=== PATIENT | male | born 1960 | race Two or more races ===

== ENCOUNTER 2018-03-26 07:12 | Outpatient (CLI) | payer OTHER ==
[~2018-03-26 07:12] MED LIST: PRILOSEC20 MG; SYNTHROID50 MCG
== END 2018-03-26 07:22 | disposition home or self-care (01) ==
LOC: SONOGRAMA 07:12 → MAMO-SONO 08:45
DX: R10.84 Generalized abdominal pain (principal)

== ENCOUNTER 2018-07-08 15:06 | Outpatient (CLI) | payer OTHER ==
[~2018-07-08] VITALS: Ht 152.4 cm; Wt 71.7 kg
== END 2018-07-08 15:20 | disposition home or self-care (01) ==
LOC: OFIC 805 15:06
DX: H61.23 Impacted cerumen, bilateral (principal); H90.3 Sensorineural hearing loss, bilateral

== ENCOUNTER 2019-01-28 07:18 | Outpatient (CLI) | payer OTHER | END 2019-01-28 12:57 | disposition home or self-care (01) | LOC: LAB 07:18 | DX: R97.21 Rising PSA following treatment for malignant neoplasm of prostate (principal) ==

== ENCOUNTER → 2019-04-30 13:46 | Outpatient (CLI) | payer OTHER | END | disposition home or self-care (01) | LOC: OFIC 805 01-26 16:00 → LAB 13:46 | DX: N39.0 Urinary tract infection, site not specified (principal); I11.0 Hypertensive heart disease with heart failure ==

== ENCOUNTER → 2019-05-11 | Outpatient (CLI) | payer OTHER | END | disposition home or self-care (01) | LOC: NUCLEAR 13:00 | DX: M81.0 Age-related osteoporosis without current pathological fracture (principal); M85.9 Disorder of bone density and structure, unspecified ==

== ENCOUNTER 2019-06-08 14:12 | Outpatient (CLI) | payer OTHER ==
[~2019-06-08] VITALS: Ht 152.4 cm; Wt 69.9 kg
== END 2019-06-08 14:30 | disposition home or self-care (01) ==
LOC: OFIC 805 14:12
DX: H61.23 Impacted cerumen, bilateral (principal); H90.3 Sensorineural hearing loss, bilateral

== ENCOUNTER 2019-08-05 07:39 | Outpatient (CLI) | payer OTHER | END 2019-08-05 07:47 | disposition home or self-care (01) | LOC: SONOGRAMA 07:39 → MAMO-SONO 07:45 → SONOGRAMA 07:47 | DX: K76.1 Chronic passive congestion of liver (principal); N18.2 Chronic kidney disease, stage 2 (mild) ==

== ENCOUNTER 2020-02-02 14:01 | Outpatient (CLI) | payer OTHER ==
[~2020-02-02] VITALS: Ht 152.4 cm; Wt 68.0 kg
== END 2020-02-02 15:00 | disposition home or self-care (01) ==
LOC: OFIC 805 14:01
DX: H90.3 Sensorineural hearing loss, bilateral (principal); H61.23 Impacted cerumen, bilateral

== ENCOUNTER 2020-07-07 04:08 | Emergency (ER) | payer OTHER ==
[~2020-07-07] VITALS: Ht 170.2 cm; Wt 68.0 kg
[2020-07-07] MEDS ORDERED: SYNTHROID75 MCG PO (04:27)
[2020-07-07] MEDS ORDERED: CRESTOR5 MG PO (04:28)
[2020-07-07] MEDS ORDERED: BUPROPION XL450 MG PO (04:28)
[2020-07-07] MEDS ORDERED: CARDURA XL8 MG PO (04:29)
== END 2020-07-07 22:32 | disposition home or self-care (01) ==
LOC: ER 04:08
DX: K57.90 Diverticulosis of intestine, part unspecified, without perforation or abscess without bleeding (principal)

== ENCOUNTER 2020-07-29 07:25 | Outpatient (CLI) | payer OTHER ==
[~2020-07-29 07:25] MED LIST changes: +BUPROPION XL450 MG PO; +CARDURA XL8 MG PO; +CRESTOR5 MG PO; +SYNTHROID75 MCG PO
== END 2020-07-29 07:26 | disposition home or self-care (01) ==
LOC: NUCLEAR 07:25
PROVIDERS: ATTEND Internal Medicine Cardiovascular Disease
DX: R07.89 Other chest pain (principal)
CPT/HCPCS: 78452; 93017; A9500

== ENCOUNTER → 2020-12-02 | Outpatient (CLI) | payer OTHER | END | disposition home or self-care (01) | LOC: OFIC 805 09:45 | PROVIDERS: ATTEND Otolaryngology | DX: H90.3 Sensorineural hearing loss, bilateral (principal); H61.23 Impacted cerumen, bilateral ==

== ENCOUNTER 2021-08-21 08:00 | Outpatient (CLI) | payer OTHER | END 2021-08-21 08:30 | disposition home or self-care (01) | LOC: PPH VACUNA 08:00 | PROVIDERS: ATTEND Emergency Medicine Pediatric Emergency Medicine | DX: Z23 Encounter for immunization (principal) ==

== ENCOUNTER 2022-03-05 09:00 | Outpatient (CLI) | payer OTHER | END 2022-03-05 09:15 | disposition home or self-care (01) | LOC: PPH VACUNA 09:00 | PROVIDERS: ATTEND Emergency Medicine Pediatric Emergency Medicine | DX: Z23 Encounter for immunization (principal) ==

== ENCOUNTER 2022-05-30 06:55 | Outpatient (CLI) | payer OTHER | END 2022-05-30 07:20 | disposition home or self-care (01) | LOC: TOM 06:55 | PROVIDERS: ATTEND Internal Medicine Gastroenterology | DX: R10.9 Unspecified abdominal pain (principal) ==

== ENCOUNTER 2022-10-09 14:21 | Outpatient (CLI) | payer OTHER | END 2022-10-09 14:23 | disposition home or self-care (01) | LOC: NUCLEAR 14:21 | PROVIDERS: ATTEND Internal Medicine Rheumatology | DX: M81.0 Age-related osteoporosis without current pathological fracture (principal); M85.88 Other specified disorders of bone density and structure, other site ==

== ENCOUNTER 2023-05-02 16:30 | Outpatient (CLI) | payer OTHER | END 2023-05-02 16:31 | disposition home or self-care (01) | LOC: LAB 16:30 | PROVIDERS: ATTEND Ophthalmology | DX: N40.0 Benign prostatic hyperplasia without lower urinary tract symptoms (principal) ==

== ENCOUNTER 2024-08-14 13:29 | Outpatient (CLI) | payer OTHER | END 2024-08-14 13:31 | disposition home or self-care (01) | LOC: NUCLEAR 13:29 | PROVIDERS: ATTEND Internal Medicine Rheumatology | DX: M81.0 Age-related osteoporosis without current pathological fracture (principal) ==

== ENCOUNTER 2024-09-25 07:11 | Outpatient (CLI) | payer OTHER | END 2024-09-25 07:12 | disposition home or self-care (01) | LOC: NUCLEAR 07:11 | PROVIDERS: ATTEND Internal Medicine | DX: R07.9 Chest pain, unspecified (principal) ==